=== PATIENT | male | born 1975 | race Caucasian/White ===

== ENCOUNTER 2019-04-28 08:46 | Day surgery (SDC) | payer BC | END 2019-04-28 15:30 | disposition home or self-care (01) | LOC: FIMAGING 08:46 ==

== ENCOUNTER 2019-04-29 09:38 | Inpatient (IN) | payer BC | END 2019-04-29 17:20 | disposition home or self-care (01) | LOC: F1N 09:38 ==

== ENCOUNTER → 2019-04-30 | Day surgery (SDC) | payer BC | LOC: FIMAGING 10:11 ==